=== PATIENT | female | born 1975 | race Caucasian/White ===

== ENCOUNTER 2016-06-29 19:56 | Emergency (ER) | payer OTHER ==
[2016-06-29] MEDS ORDERED: NORCO 5/325MG TABLET (BULK) As Ordered ONE (22:20)
--- NOTE | 2016-06-29 22:33 | EDDOCDS ---
Physician Documentation [facility] Name: Emilie Schwab Age: 41 yrs Sex: Female : 1975 Arrival Date: 06/29/2016 Time: 19:56 Bed 7 Private MD: Remington Solomon Abdul Disposition: 06/29/16 22:16 Discharged to Home/Self Care. Impression: Strain of extensor muscle, fascia and tendon of right thumb at wrist and hand level. - Condition is Stable. - Discharge Instructions: Elastic Bandage and RICE, Gamekeeper's, Skier's Thumb, Thumb Sprain. - Prescriptions for [place] 5- 325 mg Oral Tablet - take 1 tablet by ORAL route every 6 hours As needed MDD: 4 tabs; 20 tablet. - Medication Reconciliation, Local Pharmacy Hours form. - Follow up: [facility]; When: Call to arrange an appointment; Reason: Further diagnostic work-up, Continuance of care. - Problem is an ongoing problem. - Symptoms are unchanged. Historical: - Allergies: no known allergies; - Home Meds: 1. atenolol 25 mg Oral tab 1 tab 2 times per day 2. Prozac 20 mg Oral cap 1 cap once daily - PMHx: Anxiety; Supraventricular Tachycardia; Depression; - PSHx: Carpal Tunnel Repair- Bilateral; Tubal ligation; - Social history: Smoking status: Patient uses tobacco products, current every day smoker. No barriers to communication noted, The patient speaks fluent Kittitian. - Family history: Not pertinent. - : The pt / caregiver states he / she is not on anticoagulants. Home medication list is obtained from the patient. - Exposure Risk Screening:: None identified. 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 3 in. (160.02 cm) (R); Pain 6/10; 21:51 BP 185 / 108; Pulse 75; Resp 20; Temp 98.9(TE); Pulse Ox 97% on R/A; Pain 6/10; jmv 22:21 BP 170 / 87; Pulse 68; Resp 18; Temp 99.2(TE); Pulse Ox 99% on R/A; Pain 6/10; jmv 19:58 Body Mass Index 29.23 (74.84 kg, 160.02 cm) dd6 21:51 RN NOTIFIED ABOUT BP jmv MDM: 21:38 Hand, Complete Ordered. EDMS 22:15 Splint Affected Extremity ordered. ke 22:15 HYDROcodone-acetaminophen 4 pack- 5 mg-325 mg 1 packets PO Per package directions; ke Dispense with patient. 1 po q4h prn for pain ordered. 22:32 [facility] Payment Agreement was scanned into [employer] and attached to record. kendall 22:32 Financial registration complete. gjb Administered Medications: 22:30 Drug: HYDROcodone-acetaminophen 4 pack- 1 packets [hydrocodone 5 mg-acetaminophen 325 mgs mg tablet (1 tabs)] {Co-Signature: ko2 (Petra Billy RN).} Route: PO; 22:30 Follow up: Response: Med's dispensed home mgs Signatures: Dispatcher [employer] EDMS Eduin Doe, WOOL PULLER WOOL PULLER Sheela Gamez RN RN ms18 Laz Monteiro RN RN s Jennyfer Lindsay RN ko2 The chart was reviewed and I authenticate all verbal orders and agree with the evaluation and treatment provided.Corrections: (The following items were deleted from the chart) 21:54 21:06 Wrist, complete+XR ordered. EDMS EDMS Attachments: 22:32 [facility] Payment Agreement [facility] MTDD
--- NOTE | 2016-06-29 22:33 | EDDOCDS ---
Nurse's Notes [facility] Name: Emilie Schwab Age: 41 yrs Sex: Female : 1975 Arrival Date: 06/29/2016 Time: 19:56 Bed 7 Private MD: Remington Solomon Abdul Diagnosis: Strain of extensor muscle, fascia and tendon of right thumb at wrist and hand level Presentation: 06/29 20:08 Presenting complaint: Patient states: that she fell approx 2 days ago and hurt her R ms18 wrist/hand. Adult Sepsis Screening: The patient does not have new or worsening altered mentation. Patient's respiratory rate is less than 22. Systolic blood pressure is greater than 100. Patient has a qSOFA score of 0- Negative Sepsis Screen. Suicide/Homicide risk assessment- the patient denies having any suicidal and/or homicidal ideations and does not present with any other emotional, behavioral or mental health complaints. Status: Patient is not a customer service voice or dependent. Transition of care: patient was not received from another setting of care. 20:08 Acuity: GÉNESIS Level 4 ms18 20:08 Method Of Arrival: Walkin/Carried/Asstd ms18 Triage Assessment: 20:09 General: Appears in no apparent distress, comfortable, Behavior is appropriate for age, ms18 cooperative. Pain: Location: heel of right hand, palmar aspect of right wrist and Right first web space Pain currently is 6 out of 10 on a pain scale. HIV screening NA for this visit Offered previously. Neurological: No deficits noted. Respiratory: No deficits noted. Derm: Skin is pink, warm & dry. Bruising that is dark purple, on palmar aspect of proximal phalanx of right thumb, heel of right hand, palmar aspect of right wrist and Right first web space. Musculoskeletal: Range of motion limited in MCP of left thumb and CMC of left thumb No deformity noted. 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 atenolol 25 mg Oral tab 1 tab 2 times per day 2. Prozac 20 mg Oral cap 1 cap once daily - PMHx: Anxiety; Supraventricular Tachycardia; Depression; - PSHx: Carpal Tunnel Repair- Bilateral; Tubal ligation; - Social history: Smoking status: Patient uses tobacco products, current every day smoker. No barriers to communication noted, The patient speaks fluent Kyrgyz. - Family history: Not pertinent. - : The pt / caregiver states he / she is not on anticoagulants. Home medication list is obtained from the patient. - Exposure Risk Screening:: None identified. Screenin:50 Screening information is obtained from the patient. Fall risk: No risks identified. mgs Assistance ADL's: requires no assistance with activities of daily living. Abuse/DV Screen: The patient / caregiver reports he/she is: not in a situation that causes fear, pain or injury. Nutritional screening: No deficits noted. Advance Directives: Currently, there is no health care proxy. There is no active DNR order. home support is adequate. Assessment: 21:35 General: Appears in no apparent distress, Behavior is appropriate for age, cooperative. mgs Pain: Location: right thumb Pain currently is 6 out of 10 on a pain scale. Quality of pain is described as throbbing. Neurological: Level of Consciousness is awake, alert, Oriented to person, place, time. Cardiovascular: Capillary refill < 3 seconds. Respiratory: Airway is patent Respiratory effort is even, unlabored, Respiratory pattern is regular, symmetrical. Derm: Skin is pink, warm & dry. Musculoskeletal: Circulation, motion, and sensation intact Capillary refill < 3 seconds Range of motion intact in all extremities. Swelling present in right thumb ecchymosis noted in area immediately surrounding right thumb. 22:04 Adult Sepsis Screening: The patient does not have new or worsening altered mentation. mgs Patient's respiratory rate is less than 22. Systolic blood pressure is greater than 100. Patient has a qSOFA score of 0- Negative Sepsis Screen. 22:32 General: Appears in no apparent distress, Behavior is appropriate for age, cooperative. mgs Neurological: Level of Consciousness is awake, alert, Oriented to person, place, time. Cardiovascular: Capillary refill < 3 seconds. Respiratory: Airway is patent Respiratory effort is even, unlabored, Respiratory pattern is regular, symmetrical. Derm: Skin is pink, warm & dry. Vital Signs: 19:58 BP 173 / 89; Pulse 74; Resp 18 S; Temp 100.2(O); Pulse Ox 99% on R/A; Weight 74.84 kg dd6 (R); Height 5 ft. 3 in. (160.02 cm) (R); Pain 6/10; 21:51 BP 185 / 108; Pulse 75; Resp 20; Temp 98.9(TE); Pulse Ox 97% on R/A; Pain 6/10; jmv 22:21 BP 170 / 87; Pulse 68; Resp 18; Temp 99.2(TE); Pulse Ox 99% on R/A; Pain 6/10; jmv 19:58 Body Mass Index 29.23 (74.84 kg, 160.02 cm) dd6 21:51 RN NOTIFIED ABOUT BP [facility] Vitals: 19:58 Log In Time: June 29, 2016 at 19:58. dd6 ED Course: 19:57 Patient visited by Ben Hollingsworth PCA. dd6 19:57 Patient moved to Waiting dd6 19:58 Remington Solomon is Private Physician. dd6 20:00 Patient visited by Ben Hollingsworth PCA. dd6 20:00 Patient moved to Pre RCE dd6 20:08 Triage Initiated ms18 21:32 Eduin Doe FNP is PHCP. ke 21:32 Patient visited by Eduin Doe FNP. ke 21:32 Patient visited by Eduin Doe FNP. ke 21:32 Patient moved to 7 jmb 21:35 Laz Monteiro,JUNIOR is Primary Nurse. mgs 21:39 Patient visited by Eduin Doe FNP. ke 21:52 Patient visited by Wally Alba PCA. jmv 22:15 [facility] is Referral Physician. ke 22:22 Patient visited by Wally Alba PCA. jmv 22:31 No IV's were initiated during this patient's visit. No procedures done that require mgs assistance. 22:32 The patient / caregiver is instructed regarding the plan of care and ED course. mgs 22:32 [facility] [place] was scanned into [employer] and attached to record. gjb 22:33 Patient visited by Laz Monteiro RN. mgs Administered Medications: 22:30 Drug: HYDROcodone-acetaminophen 4 pack- 1 packets [hydrocodone 5 mg-acetaminophen 325 mgs mg tablet (1 tabs)] {Co-Signature: ko2 (Petra Billy RN).} Route: PO; 22:30 Follow up: Response: Med's dispensed home mgs Order Results: There are currently no results for this order. Outcome: 22:16 Discharge ordered by Provider. ke 22:31 Discharge Assessment: Patient awake, alert and oriented x 3. No cognitive and/or mgs functional deficits noted. Patient verbalized understanding of disposition instructions. patient administered narcotics - no. The following High Risk Discharge criteria are identified:. Condition: stable. Discharge instructions given to patient, Instructed on discharge instructions, follow up and referral plans. medication usage, Demonstrated understanding of instructions, medications, Pt was receptive of discharge instructions/ teaching. Prescriptions given X 1. Property sent home with patient. 22:32 No special radiology studies were completed. mgs 22:32 Patient left the ED. mgs Signatures: Eduin Doe, PEDIATRIC NEPHROLOGIST PEDIATRIC NEPHROLOGIST Ben Aguero, UNIX MANAGER UNIX MANAGER dd6 Seven Wong,RN RN Sheela Lopez RN RN ms18 Laz Monteiro,RN RN Jennyfer Kim Jose, UNIX MANAGER UNIX MANAGER jmv Petra Billy RN ko2 HESHAM
--- NOTE | 2016-06-29 23:00 | REP ---
Clinical: Trauma. Technique: AP, lateral, bilateral oblique views right hand. Findings: The osseous structures are intact and there is no evidence for acute fracture. Subtle subluxation at the first carpometacarpal joint should be correlated with mechanism and tenderness. Surrounding soft tissues are unremarkable. No subcutaneous emphysema or radiodense foreign body. Impression: No acute fracture. Question subtle subluxation at the first carpometacarpal joint and correlation with mechanism of injury and point of tenderness is recommended. Signed by German Law MD 06/29/2016 10:52 P
--- NOTE | 2016-07-01 23:33 | EDDOCDS ---
Physician Documentation [facility] Name: Emilie Schwab Age: 41 yrs Sex: Female : 1975 Arrival Date: 06/29/2016 Time: 19:56 Bed 7 Private MD: Remington Solomon Abdul Disposition: 06/29/16 22:16 Discharged to Home/Self Care. Impression: Strain of extensor muscle, fascia and tendon of right thumb at wrist and hand level. - Condition is Stable. - Discharge Instructions: Elastic Bandage and RICE, Gamekeeper's, Skier's Thumb, Thumb Sprain. - Prescriptions for [place] 5- 325 mg Oral Tablet - take 1 tablet by ORAL route every 6 hours As needed MDD: 4 tabs; 20 tablet. - Medication Reconciliation, Local Pharmacy Hours form. - Follow up: [facility]; When: Call to arrange an appointment; Reason: Further diagnostic work-up, Continuance of care. - Problem is an ongoing problem. - Symptoms are unchanged. Historical: - Allergies: no known allergies; - Home Meds: 1. atenolol 25 mg Oral tab 1 tab 2 times per day 2. Prozac 20 mg Oral cap 1 cap once daily - PMHx: Anxiety; Supraventricular Tachycardia; Depression; - PSHx: Carpal Tunnel Repair- Bilateral; Tubal ligation; - Social history: Smoking status: Patient uses tobacco products, current every day smoker. No barriers to communication noted, The patient speaks fluent Tajik. - Family history: Not pertinent. - : The pt / caregiver states he / she is not on anticoagulants. Home medication list is obtained from the patient. - Exposure Risk Screening:: None identified. 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 3 in. (160.02 cm) (R); Pain 6/10; 21:51 BP 185 / 108; Pulse 75; Resp 20; Temp 98.9(TE); Pulse Ox 97% on R/A; Pain 6/10; jmv 22:21 BP 170 / 87; Pulse 68; Resp 18; Temp 99.2(TE); Pulse Ox 99% on R/A; Pain 6/10; jmv 19:58 Body Mass Index 29.23 (74.84 kg, 160.02 cm) dd6 21:51 RN NOTIFIED ABOUT BP jmv MDM: 21:38 Hand, Complete Ordered. EDMS 22:15 Splint Affected Extremity ordered. ke 22:15 HYDROcodone-acetaminophen 4 pack- 5 mg-325 mg 1 packets PO Per package directions; ke Dispense with patient. 1 po q4h prn for pain ordered. 22:32 [facility] Payment Agreement was scanned into [employer] and attached to record. [facility] :32 Financial registration complete. kendall 06/30 01:44 T-Sheet-- Draft Copy was scanned into [employer] and attached to record. thai 07/01 00:03 ED course: ncog faxed formal report of right hand film for fu mlg. ml Administered Medications: 06/29 22:30 Drug: HYDROcodone-acetaminophen 4 pack- 1 packets [hydrocodone 5 mg-acetaminophen 325 mgs mg tablet (1 tabs)] {Co-Signature: ko2 (Petra Billy RN).} Route: PO; 22:30 Follow up: Response: Med's dispensed home mgs Signatures: Dispatcher [employer] EDMS Azam Louise MD MD ml Elsner, Karl, IMPRESSION PRINTER IMPRESSION PRINTER Sheela Gamez RN RN ms18 Laz Monteiro RN RN mgs Megan Ruano Gabriela gjb Kari Ogden RN ko2 The chart was reviewed and I authenticate all verbal orders and agree with the evaluation and treatment provided.Corrections: (The following items were deleted from the chart) 21:54 21:06 Wrist, complete+XR ordered. EDMS EDMS Attachments: 22:32 [facility] Payment Agreement [facility] 06/30 01:44 T-Sheet-- Draft Copy thai Chart Complete MTDD
--- NOTE | 2016-07-01 23:33 | EDDOCDS ---
Nurse's Notes [facility] Name: Emilie Schwab Age: 41 yrs Sex: Female : 1975 Arrival Date: 06/29/2016 Time: 19:56 Bed 7 Private MD: Remington Solomon Abdul Diagnosis: Strain of extensor muscle, fascia and tendon of right thumb at wrist and hand level Presentation: 06/29 20:08 Presenting complaint: Patient states: that she fell approx 2 days ago and hurt her R ms18 wrist/hand. Adult Sepsis Screening: The patient does not have new or worsening altered mentation. Patient's respiratory rate is less than 22. Systolic blood pressure is greater than 100. Patient has a qSOFA score of 0- Negative Sepsis Screen. Suicide/Homicide risk assessment- the patient denies having any suicidal and/or homicidal ideations and does not present with any other emotional, behavioral or mental health complaints. Status: Patient is not a customer service manager or dependent. Transition of care: patient was not received from another setting of care. 20:08 Acuity: GÉNESIS Level 4 ms18 20:08 Method Of Arrival: Walkin/Carried/Asstd ms18 Triage Assessment: 20:09 General: Appears in no apparent distress, comfortable, Behavior is appropriate for age, ms18 cooperative. Pain: Location: heel of right hand, palmar aspect of right wrist and Right first web space Pain currently is 6 out of 10 on a pain scale. HIV screening NA for this visit Offered previously. Neurological: No deficits noted. Respiratory: No deficits noted. Derm: Skin is pink, warm & dry. Bruising that is dark purple, on palmar aspect of proximal phalanx of right thumb, heel of right hand, palmar aspect of right wrist and Right first web space. Musculoskeletal: Range of motion limited in MCP of left thumb and CMC of left thumb No deformity noted. 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 atenolol 25 mg Oral tab 1 tab 2 times per day 2. Prozac 20 mg Oral cap 1 cap once daily - PMHx: Anxiety; Supraventricular Tachycardia; Depression; - PSHx: Carpal Tunnel Repair- Bilateral; Tubal ligation; - Social history: Smoking status: Patient uses tobacco products, current every day smoker. No barriers to communication noted, The patient speaks fluent Kinyarwanda. - Family history: Not pertinent. - : The pt / caregiver states he / she is not on anticoagulants. Home medication list is obtained from the patient. - Exposure Risk Screening:: None identified. Screenin:50 Screening information is obtained from the patient. Fall risk: No risks identified. mgs Assistance ADL's: requires no assistance with activities of daily living. Abuse/DV Screen: The patient / caregiver reports he/she is: not in a situation that causes fear, pain or injury. Nutritional screening: No deficits noted. Advance Directives: Currently, there is no health care proxy. There is no active DNR order. home support is adequate. Assessment: 21:35 General: Appears in no apparent distress, Behavior is appropriate for age, cooperative. mgs Pain: Location: right thumb Pain currently is 6 out of 10 on a pain scale. Quality of pain is described as throbbing. Neurological: Level of Consciousness is awake, alert, Oriented to person, place, time. Cardiovascular: Capillary refill < 3 seconds. Respiratory: Airway is patent Respiratory effort is even, unlabored, Respiratory pattern is regular, symmetrical. Derm: Skin is pink, warm & dry. Musculoskeletal: Circulation, motion, and sensation intact Capillary refill < 3 seconds Range of motion intact in all extremities. Swelling present in right thumb ecchymosis noted in area immediately surrounding right thumb. 22:04 Adult Sepsis Screening: The patient does not have new or worsening altered mentation. mgs Patient's respiratory rate is less than 22. Systolic blood pressure is greater than 100. Patient has a qSOFA score of 0- Negative Sepsis Screen. 22:32 General: Appears in no apparent distress, Behavior is appropriate for age, cooperative. mgs Neurological: Level of Consciousness is awake, alert, Oriented to person, place, time. Cardiovascular: Capillary refill < 3 seconds. Respiratory: Airway is patent Respiratory effort is even, unlabored, Respiratory pattern is regular, symmetrical. Derm: Skin is pink, warm & dry. Vital Signs: 19:58 BP 173 / 89; Pulse 74; Resp 18 S; Temp 100.2(O); Pulse Ox 99% on R/A; Weight 74.84 kg dd6 (R); Height 5 ft. 3 in. (160.02 cm) (R); Pain 6/10; 21:51 BP 185 / 108; Pulse 75; Resp 20; Temp 98.9(TE); Pulse Ox 97% on R/A; Pain 6/10; jmv 22:21 BP 170 / 87; Pulse 68; Resp 18; Temp 99.2(TE); Pulse Ox 99% on R/A; Pain 6/10; jmv 19:58 Body Mass Index 29.23 (74.84 kg, 160.02 cm) dd6 21:51 RN NOTIFIED ABOUT BP [facility] Vitals: 19:58 Log In Time: June 29, 2016 at 19:58. dd6 ED Course: 19:57 Patient visited by Ben Hollingsworth PCA. dd6 19:57 Patient moved to Waiting dd6 19:58 Remington Solomon is Private Physician. dd6 20:00 Patient visited by Ben Hollingsworth PCA. dd6 20:00 Patient moved to Pre RCE dd6 20:08 Triage Initiated ms18 21:32 Eduin Doe FNP is PHCP. ke 21:32 Patient visited by Eduin Doe FNP. ke 21:32 Patient visited by Eduin Doe FNP. ke 21:32 Patient moved to 7 jmb 21:35 Laz Monteiro,JUNIOR is Primary Nurse. mgs 21:39 Patient visited by Eduin Doe FNP. ke 21:52 Patient visited by Wally Alba PCA. jmv 22:15 [facility] is Referral Physician. ke 22:22 Patient visited by Wally Alba PCA. jmv 22:31 No IV's were initiated during this patient's visit. No procedures done that require mgs assistance. 22:32 The patient / caregiver is instructed regarding the plan of care and ED course. mgs 22:32 [facility] Payment Agreement was scanned into [employer] and attached to record. gjb 22:33 Patient visited by Laz Monteiro RN. mgs 23:43 Hand, Complete Returned. EDMS 06/30 01:44 T-Sheet-- Draft Copy was scanned into [employer] and attached to record. lja Administered Medications: 06/29 22:30 Drug: HYDROcodone-acetaminophen 4 pack- 1 packets [hydrocodone 5 mg-acetaminophen 325 mgs mg tablet (1 tabs)] {Co-Signature: ko2 (Petra Billy RN).} Route: PO; 22:30 Follow up: Response: Med's dispensed home mgs Order Results: Radiology Order: Hand, Complete Test: Hand, Complete REASON FOR EXAMINATION: Trauma; Clinical: Trauma.; ; Technique: AP, lateral, bilateral oblique views right hand.; ; Findings: The osseous structures are intact and there is no evidence for acute; fracture. Subtle subluxation at the first carpometacarpal joint should be; correlated with mechanism and tenderness. Surrounding soft tissues are; unremarkable. No subcutaneous emphysema or radiodense foreign body.; ; Impression:; No acute fracture.; Question subtle subluxation at the first carpometacarpal joint and correlation; with mechanism of injury and point of tenderness is recommended.; ; ; Signed by; German Law MD 06/29/2016 10:52 P; Outcome: 22:16 Discharge ordered by Provider. 22:31 Discharge Assessment: Patient awake, alert and oriented x 3. No cognitive and/or mgs functional deficits noted. Patient verbalized understanding of disposition instructions. patient administered narcotics - no. The following High Risk Discharge criteria are identified:. Condition: stable. Discharge instructions given to patient, Instructed on discharge instructions, follow up and referral plans. medication usage, Demonstrated understanding of instructions, medications, Pt was receptive of discharge instructions/ teaching. Prescriptions given X 1. Property sent home with patient. 22:32 No special radiology studies were completed. mgs 22:32 Patient left the ED. mgs Signatures: Dispatcher [employer] EDMS Eduin Doe, DEAN OF GIRLS DEAN OF GIRLS Ben Aguero, CLERK GENERAL OFFICE CLERK GENERAL OFFICE dd6 Seven Wong,RN RN Sheela Lopez RN RN ms18 Laz Monteiro RN RN mgs Arel, Jennyfer Baltazar Jose, CLERK GENERAL OFFICE CLERK GENERAL OFFICE jmv Petra Billy RN ko2 Chart Complete MTDD
--- NOTE | 2016-07-01 23:33 | EDDOCDS ---
Physician Documentation [facility] Name: Emilie Schwab Age: 41 yrs Sex: Female : 1975 Arrival Date: 06/29/2016 Time: 19:56 Bed 7 Private MD: Remington Solomon Abdul Disposition: 06/29/16 22:16 Discharged to Home/Self Care. Impression: Strain of extensor muscle, fascia and tendon of right thumb at wrist and hand level. - Condition is Stable. - Discharge Instructions: Elastic Bandage and RICE, Gamekeeper's, Skier's Thumb, Thumb Sprain. - Prescriptions for [place] 5- 325 mg Oral Tablet - take 1 tablet by ORAL route every 6 hours As needed MDD: 4 tabs; 20 tablet. - Medication Reconciliation, Local Pharmacy Hours form. - Follow up: [facility]; When: Call to arrange an appointment; Reason: Further diagnostic work-up, Continuance of care. - Problem is an ongoing problem. - Symptoms are unchanged. Historical: - Allergies: no known allergies; - Home Meds: 1. atenolol 25 mg Oral tab 1 tab 2 times per day 2. Prozac 20 mg Oral cap 1 cap once daily - PMHx: Anxiety; Supraventricular Tachycardia; Depression; - PSHx: Carpal Tunnel Repair- Bilateral; Tubal ligation; - Social history: Smoking status: Patient uses tobacco products, current every day smoker. No barriers to communication noted, The patient speaks fluent [place]. - Family history: Not pertinent. - : The pt / caregiver states he / she is not on anticoagulants. Home medication list is obtained from the patient. - Exposure Risk Screening:: None identified. BUSINESS DEVELOPMENT AGENT: 06/29 20:09 LMP 06/22/2016 [id number] Vital Signs: 19:58 BP 173 / 89; Pulse 74; Resp 18 S; Temp 100.2(O); Pulse Ox 99% on R/A; Weight 74.84 kg / dd6 164.99 lbs (R); Height 5 ft. 3 in. (160.02 cm) (R); Pain 6/10; 21:51 BP 185 / 108; Pulse 75; Resp 20; Temp 98.9(TE); Pulse Ox 97% on R/A; Pain 6/10; jmv 22:21 BP 170 / 87; Pulse 68; Resp 18; Temp 99.2(TE); Pulse Ox 99% on R/A; Pain 6/10; jmv 19:58 Body Mass Index 29.23 (74.84 kg, 160.02 cm) dd6 21:51 RN NOTIFIED ABOUT BP jmv MDM: 21:38 Hand, Complete Ordered. EDMS 22:15 Splint Affected Extremity ordered. ke 22:15 HYDROcodone-acetaminophen 4 pack- 5 mg-325 mg 1 packets PO Per package directions; ke Dispense with patient. 1 po q4h prn for pain ordered. 22:32 [facility] Payment Agreement was scanned into enosiX and attached to record. [facility] :32 Financial registration complete. kendall 06/30 01:44 T-Sheet-- Draft Copy was scanned into en[employer]X and attached to record. thai 07/01 00:03 ED course: ncog faxed formal report of right hand film for fu mlg. ml Administered Medications: 06/29 22:30 Drug: HYDROcodone-acetaminophen 4 pack- 1 packets [hydrocodone 5 mg-acetaminophen 325 mgs mg tablet (1 tabs)] {Co-Signature: [email or web address] (Petra Billy RN).} Route: PO; 22:30 Follow up: Response: Med's dispensed home mgs Signatures: Dispatcher [employer] EDMS Azam Louise MD MD ml Elsner, Karl, CONSTRUCTION PERSON CONSTRUCTION PERSON Sheela Gamez RN RN [id number] Laz Monteiro RN RN mgs Megan Ruano Gabriela gjb Kari Ogden RN ko2 The chart was reviewed and I authenticate all verbal orders and agree with the evaluation and treatment provided.Corrections: (The following items were deleted from the chart) 21:54 21:06 Wrist, complete+XR ordered. EDMS EDMS Attachments: 22:32 [facility] Payment Agreement [facility] 06/30 01:44 T-Sheet-- Draft Copy thai Chart Complete MTDD
== END 2016-06-29 22:32 | disposition home or self-care (01) ==
LOC: M ED 19:56
DX: S63.91XA Sprain of unspecified part of right wrist and hand, initial encounter (principal); W19.XXXA Unspecified fall, initial encounter; Y92.89 Other specified places as the place of occurrence of the external cause; Y93.89 Activity, other specified; Y99.8 Other external cause status; F41.9 Anxiety disorder, unspecified; F32.9 Major depressive disorder, single episode, unspecified; I47.1 Supraventricular tachycardia; Z72.0 Tobacco use; Z79.899 Other long term (current) drug therapy

== ENCOUNTER 2016-12-12 16:40 | Emergency (ER) | payer OTHER ==
[~2016-12-12] VITALS: Ht 160 cm; Wt 85.1 kg
[2016-12-12 16:40] VITALS: BP 11/70
[2016-12-12] MEDS ORDERED: ATEN25TA PO (16:51)
[2016-12-12] MEDS ORDERED: GUAISYP5 PO (17:09)
[2016-12-12] MEDS ORDERED: ZOFR4TAB3 PO (17:09)
[2016-12-12] MEDS ORDERED: AMOX500C PO (17:09)
[2016-12-12] MEDS ORDERED: ALBU17IN INH (17:09)
== END 2016-12-12 17:15 | disposition home or self-care (01) ==
LOC: M ED 17:07
DX: J44.0 Chronic obstructive pulmonary disease with (acute) lower respiratory infection (principal); I10 Essential (primary) hypertension; F17.200 Nicotine dependence, unspecified, uncomplicated; Z79.899 Other long term (current) drug therapy